=== PATIENT | male | born 1950 | race Caucasian/White ===

== ENCOUNTER 2017-09-22 11:46 | Emergency (ER) | payer MEDICARE ==
[~2017-09-22] VITALS: Ht 175.3 cm; Wt 106.7 kg
[~2017-09-22 11:46] MED LIST: BENA20TA2 PO; COLE500G2 PO; GABA300C10 PO; MELO15TA24 PO; MONT10TA9 PO; PANT40TA3 PO; SAXA5TAB PO
[2017-09-22] MEDS ORDERED: HYDROcodone/APAP 5/325 TABLET ONE (12:25)
[2017-09-22] MEDS ORDERED: DIPH,PERTUSS(ACELL),TET VAC/PF 0.5 ML IM-VACC ONE ×2 (12:26→12:30)
[2017-09-22] MEDS ORDERED: HYDROcodone/APAP 5/325 TABLET PO PRN (12:30)
[2017-09-22] MEDS ORDERED: LIDOCAINE-MPF 1%, 5ML INFIL ONE (12:30)
[2017-09-22] MEDS ORDERED: LIDOCAINE-MPF 1%, 5ML ONE (12:41)
[2017-09-22 14:14] VITALS: BP 150/84
== END 2017-09-22 14:16 | disposition home or self-care (01) ==
LOC: ED 12:55
DX: S01.01XA Laceration without foreign body of scalp, initial encounter (principal); S09.8XXA Other specified injuries of head, initial encounter; E11.9 Type 2 diabetes mellitus without complications; I10 Essential (primary) hypertension; J45.909 Unspecified asthma, uncomplicated; W22.8XXA Striking against or struck by other objects, initial encounter; Y93.89 Activity, other specified; Y92.098 Other place in other non-institutional residence as the place of occurrence of the external cause; Y99.8 Other external cause status
CPT/HCPCS: 12031; 70450; 90715; 96372; 99284

== ENCOUNTER 2017-09-28 13:01 | Emergency (ER) | payer MEDICARE ==
[~2017-09-28] VITALS: Ht 175.3 cm; Wt 102.0 kg
[2017-09-28 14:43] VITALS: BP 125/71
== END 2017-09-28 14:49 | disposition home or self-care (01) ==
LOC: ED 14:00
DX: S01.01XD Laceration without foreign body of scalp, subsequent encounter (principal); X58.XXXD Exposure to other specified factors, subsequent encounter; I10 Essential (primary) hypertension; E11.9 Type 2 diabetes mellitus without complications; J45.909 Unspecified asthma, uncomplicated; Z88.0 Allergy status to penicillin
CPT/HCPCS: 99281

== ENCOUNTER → 2018-01-03 | Outpatient (CLI) | payer MEDICARE ==
[~2018-01-03] MED LIST changes: -BENA20TA2 PO; +BENA20TA4 PO; +GLIM4TAB2 PO
[2018-01-03 10:41] LABS: BASOPHILS % (AUTO) 1 % (0-1); EOSINOPHILS # (AUTO) 0.49 x10^3/uL (0-0.4); EOSINOPHILS % (AUTO) 4 % (1-7); LYMPHOCYTES # (AUTO) 3.24 x10^3/uL (1-3.4); LYMPHOCYTES % (AUTO) 24 % (22-44); MD NO; MEAN CORPUSCULAR HEMOGLOBIN 29.5 pg (27.5-34.5); MEAN CORPUSCULAR HGB CONC 33.7 g/dL (33.2-36.2); MEAN CORPUSCULAR VOLUME 87.3 fL (81-97); MEAN PLATELET VOLUME 7.9 fL (7.4-10.4); MONOCYTES # (AUTO) 0.99 x10^3/uL (0.2-0.8); MONOCYTES % (AUTO) 7 % (2-9); NEUTROPHILS # (AUTO) 8.73 x10^3/uL (1.8-6.8); NEUTROPHILS % (AUTO) 65 % (42-75); PLATELET COUNT 265 x10^3/uL (130-400); RED BLOOD COUNT 5.73 x10^6/uL (4.38-5.82); RED CELL DISTRIBUTION WIDTH 16.3 % (9.4-14.8)
[2018-01-03 10:48] LABS: INTERNATIONAL NORMALIZED RATIO 0.97 (0.93-1.1)
[2018-01-03 10:52] LABS: MICROSCOPIC NOT IND
[2018-01-03 10:53] LABS: ALANINE AMINOTRANSFERASE 33 U/L (12-78); ALBUMIN 4.3 g/dL (3.4-5.0); ANION GAP 6 mmol/L (5-15); CALCIUM 9.1 mg/dL (8.5-10.1); CHLORIDE 105 mmol/L (98-107); CREATININE 1.04 mg/dL (0.7-1.3)
[2018-01-03 10:54] LABS: CULTURE INDICATED? NO
[2018-01-03 10:55] LABS: ALKALINE PHOSPHATASE 90 U/L (45-117)
[2018-01-03 12:08] LABS: HEMOGLOBIN A1C 6.3 % (4.2-6.3)
== END | disposition home or self-care (01) ==
LOC: STAR 09:23
PROVIDERS: ATTEND Neurological Surgery
DX: Z01.818 Encounter for other preprocedural examination (principal); M48.061 Spinal stenosis, lumbar region without neurogenic claudication
CPT/HCPCS: 36415; 71046; 80053; 81003; 83036; 85025; 85610; 85730; 93005

== ENCOUNTER 2018-01-15 06:35 | Observation (INO) | payer MEDICARE ==
[~2018-01-15] VITALS: Ht 175.3 cm; Wt 113.5 kg
[2018-01-15] MEDS ORDERED: THROMBIN 5,000 UNIT VIAL TP ONE (07:03)
[2018-01-15] MEDS ORDERED: BACITRACIN 50,000 UNIT ONE (07:03)
[2018-01-15] MEDS ORDERED: BUPIVACAINE/PF-EPI 0.25% 1:200K ONE (07:03)
[2018-01-15] MEDS ORDERED: LACTATED RINGERS 1,000 ML IV SCH (07:06)
[2018-01-15] MEDS ORDERED: DIPH25CA61 PO (07:08)
[2018-01-15] MEDS ORDERED: ACETAMINOPHEN 500 MG TABLET PO ONE (07:30)
[2018-01-15] MEDS ORDERED: GABAPENTIN 300 MG CAPSULE PO ONE (07:30)
[2018-01-15] MEDS ORDERED: BUPIVACAINE/PF 0.5% ONE (07:52)
[2018-01-15] MEDS ORDERED: FENTANYL PF 250 MCG/5ML ONE (08:28)
[2018-01-15] MEDS ORDERED: EPHEDRINE 50 MG/ML, 1ML ONE (09:27)
[2018-01-15] MEDS ORDERED: NEOSTIGMINE 1 MG/ML, 10ML ONE (10:24)
[2018-01-15] MEDS ORDERED: PROPOFOL 10 MG/ML, 20ML ONE (10:24)
[2018-01-15] MEDS ORDERED: CEFAZOLIN 1,000 MG ONE (10:24)
[2018-01-15] MEDS ORDERED: ONDANSETRON 2MG/ML, 2ML ONE (10:24)
[2018-01-15] MEDS ORDERED: ROCURONIUM 10MG/ML,5ML ONE (10:24)
[2018-01-15] MEDS ORDERED: DEXAMETHASONE 4 MG/ML, 1ML ONE (10:24)
[2018-01-15] MEDS ORDERED: GLYCOPYRROLATE 0.2MG/1ML, 5ML ONE (10:24)
[2018-01-15] MEDS ORDERED: SUCCINYLCHOLINE 20 MG/ML, 10ML ONE (10:24)
[2018-01-15] MEDS ORDERED: PROCHLORPERAZINE 5 MG/ML, 2ML IV PRN (10:30)
[2018-01-15] MEDS ORDERED: MEPERIDINE/PF 25MG/0.5ML IVPush PRN (10:30)
[2018-01-15] MEDS ORDERED: OXYcodone 5 MG/5 ML ORAL.SOL UDC PO PRN (10:30)
[2018-01-15] MEDS ORDERED: LABETALOL 5MG/ML, 20ML IV PRN (10:30)
[2018-01-15] MEDS ORDERED: DIPHENHYDRAMINE 50 MG/ML, 1ML IVPush PRN ×2 (10:30→11:00)
[2018-01-15] MEDS ORDERED: HYDROmorphone 1 MG/ML, 1ML IV PRN (10:30)
[2018-01-15] MEDS ORDERED: MAGNESIUM HYDROXIDE 8%, 30ML UDC PO PRN (11:00)
[2018-01-15] MEDS ORDERED: PHARMACY MAY ADJ FOR RENAL FX MC PRN (11:00)
[2018-01-15] MEDS ORDERED: PROMETHAZINE 25 MG/ML, 1ML IM PRN (11:00)
[2018-01-15] MEDS ORDERED: MEPERIDINE/PF 100 MG/ML IM PRN (11:00)
[2018-01-15] MEDS ORDERED: HYDROmorphone 1 MG/ML, 1ML IVPush PRN (11:00)
[2018-01-15] MEDS ORDERED: HYDROcodone/APAP 10/325 MG TABLET PO PRN (11:00)
[2018-01-15] MEDS ORDERED: BISACODYL 10 MG SUPP PR PRN (11:00)
[2018-01-15] MEDS ORDERED: TIZANIDINE 4MG TABLET PO PRN (11:00)
[2018-01-15] MEDS ORDERED: ONDANSETRON 2MG/ML, 2ML IVPush PRN (11:00)
[2018-01-15] MEDS ORDERED: FENTANYL PF 100 MCG/2ML ONE (11:43)
[2018-01-15] MEDS: FENTANYL PF 100 MCG/2ML IV PRN ×2 (11:45→11:55)
[2018-01-15] MEDS ORDERED: OXYcodone 5 MG/5 ML ORAL.SOL UDC ONE (11:57)
[2018-01-15] MEDS: GABAPENTIN 300 MG CAPSULE PO SCH ×3 (14:09→19:57)
[2018-01-15] MEDS: NS + 20MEQ KCL 1,000 ML IV SCH ×2 (14:09→23:35)
[2018-01-15 14:55] VITALS: BP 130/76
[2018-01-15] MEDS: CEFAZOLIN PMX 1GM/50ML 50 ML IVPB SCH (17:44)
[2018-01-15 18:39] VITALS: BP 136/80
[2018-01-15] MEDS ORDERED: CEFAZOLIN PMX 1GM/50ML 50 ML IVPB SCH (19:00)
[2018-01-15] MEDS ORDERED: ACETAMINOPHEN 325 MG TABLET PO PRN (19:30)
[2018-01-15] MEDS: BENAZEPRIL 20 MG TABLET PO SCH (19:57)
[2018-01-15] MEDS ORDERED: MONTELUKAST 10 MG TABLET PO SCH (21:00)
[2018-01-15] MEDS: SODIUM CHLORIDE FLUSH 10ML SYR IVF SCH (21:00)
[2018-01-16 00:26] VITALS: BP 136/82
[2018-01-16] MEDS: CEFAZOLIN PMX 1GM/50ML 50 ML IVPB SCH (01:18)
[2018-01-16] MEDS: OXYcodone/APAP 5/325MG TABLET PO PRN ×4 (01:41→14:28)
[2018-01-16 04:00] VITALS: BP 117/72
[2018-01-16] MEDS: GABAPENTIN 300 MG CAPSULE PO SCH ×3 (06:44→14:12)
[2018-01-16 07:15] VITALS: BP 138/65
[2018-01-16] MEDS ORDERED: PANTOPROZOLE 40MG TABLET PO SCH (07:30)
[2018-01-16] MEDS ORDERED: GLIMEPIRIDE 1 MG TABLET PO SCH (08:00)
[2018-01-16] MEDS: BENAZEPRIL 20 MG TABLET PO SCH (08:39)
[2018-01-16] MEDS: NS + 20MEQ KCL 1,000 ML IV SCH (08:40)
[2018-01-16] MEDS: SODIUM CHLORIDE FLUSH 10ML SYR IVF SCH (08:40)
[2018-01-16] MEDS ORDERED: SENNA/DOCUSATE TABLET PO SCH (09:00)
[2018-01-16] MEDS ORDERED: DIPHENHYDRAMINE 25 MG CAPSULE PO SCH (09:00)
[2018-01-16] MEDS ORDERED: OXYC-302 PO (10:42)
[2018-01-16] MEDS ORDERED: TIZA4TAB9 PO (10:43)
[2018-01-16] MEDS ORDERED: POLY17PO5 PO (10:43)
[2018-01-16 13:33] VITALS: BP 104/62
== END 2018-01-16 16:18 | disposition home or self-care (01) ==
LOC: OUT 06:35 → ORIP 10:54 → 4NOR 12:32 → DCLOUNGE 01-16 15:53
PROVIDERS: ADMIT Neurological Surgery; ATTEND Neurological Surgery
DX: M48.061 Spinal stenosis, lumbar region without neurogenic claudication (principal); G56.03 Carpal tunnel syndrome, bilateral upper limbs; M54.16 Radiculopathy, lumbar region
CPT/HCPCS: 63047; 63048; 64721; 72100; 82962; 96365; 96366; 97162; 97166; G0378; J0330; J0690; J1100; J2270; J2405; J2704; J2710; J3010; J3480; J3490; J7120

== ENCOUNTER → 2018-11-13 | Outpatient (CLI) | payer MEDICARE ==
[~2018-11-13] MED LIST changes: -BENA20TA4 PO; +BENA20TA54 PO; +DIPH25CA61 PO; +OXYC-302 PO; +POLY17PO5 PO; +TIZA4TAB9 PO
== END | disposition home or self-care (01) ==
LOC: EDSTATUS 10-24 13:45 → CVU 07:23 → EDSTATUS 08:00
PROVIDERS: ATTEND Nurse Practitioner Family
DX: I83.891 Varicose veins of right lower extremity with other complications (principal); E11.40 Type 2 diabetes mellitus with diabetic neuropathy, unspecified; I78.1 Nevus, non-neoplastic
CPT/HCPCS: 93970